=== PATIENT | male | born 1985 | race Asian ===

== ENCOUNTER 2022-04-12 18:08 | Emergency (ER) | payer SELFPAY ==
[~2022-04-12] VITALS: Ht 167.6 cm; Wt 59.0 kg
--- NOTE | 2022-04-12 18:08 | NUR ---
PT CAME IN C/O LLQ PAIN X 1 DAY, DENIES N/V/D, DENIES FEVERS. DENIES MEDICAL SURGICAL HX. A&OX4 CALM AND COOPERATIVE IN NO SIGNS OF ACUTE DISTRESS. CARE WILL BE PROVIDED ORDERED.
[2022-04-12 18:32] VITALS: BP_SYST 149
--- NOTE | 2022-04-12 18:40 | NUR ---
ER Dr. CRAVEN at bedside examining patient.
[2022-04-12] MEDS ORDERED: MORPHINE 4 MG INJ. 4 MG/ML VIAL IVP ONE (18:45)
[2022-04-12] MEDS ORDERED: KETOROLAC TROMETHAMINE 30 MG VIAL IVP ONE (18:45)
[2022-04-12] MEDS ORDERED: NACL 0.9% 1,000 ML IV ONE (18:45)
[2022-04-12 19:12] LABS: BASOPHILS % (AUTO) 0.5 % (0.0-2.0); EOSINOPHILS % (AUTO) 0.5 % (0.0-4.0); HEMATOCRIT 43.8 % (36-54); HEMOGLOBIN 14.6 g/dL (14.0-18.0); LYMPHOCYTES # (AUTO) 1.3 K/uL (1.0-5.5); LYMPHOCYTES % (AUTO) 17.7 % (20.5-51.5); MEAN CORPUSCULAR HEMOGLOBIN 28 pg (27-31); MEAN CORPUSCULAR HGB CONC 33 % (32-36); MEAN CORPUSCULAR VOLUME 84 fL (79.0-98.0); MONOCYTES # (AUTO) 0.4 K/uL (0.0-1.0); MONOCYTES % (AUTO) 5.6 % (1.7-9.3); NEUTROPHILS # (AUTO) 5.5 K/uL (1.8-7.7); NEUTROPHILS % (AUTO) 75.7 % (40.0-70.0); PLATELET COUNT (AUTO) 209 K/uL (130-430); RED BLOOD CELL COUNT(AUTO) 5.25 MIL/uL (4.2-6.2); RED CELL DISTRIBUTION WIDTH 12.8 % (9.0-15.0); WHITE BLOOD COUNT (AUTO) 7.3 K/uL (4.8-10.8)
[2022-04-12 19:23] LABS: CREATININE 1.31 mg/dL (0.55-1.30)
[2022-04-12 19:30] LABS: ALBUMIN 3.9 g/dL (3.4-4.8); TOTAL BILIRUBIN 0.5 mg/dL (0.0-1.0)
--- NOTE | 2022-04-12 20:38 | NUR ---
RECEIVED IN BED WITH C/O PAIN OF THE LEVEL OF 9/10 TO LLQ , MEDICATED ORDERED, RE ASSESSED FOR PAIN AND PATIENT STATED THAT HE STILL HAS PAIN OF 4/10 TO LLQ. PATIENT WAS THEN REMEDICATED ORDERED. PATIENT PRESENTLY DENIES PAIN, V/S 129/86 (102), RR10, HR78 O2SAT 98% RA TEMP 98.1 ORAL. WILL CONTINUE TO MONITOR
[2022-04-12] MEDS ORDERED: NAPR-1172 PO (21:21)
[2022-04-12 22:08] VITALS: BP_SYST 129
== END 2022-04-12 22:08 | disposition home or self-care (01) ==
LOC: SED 18:08
DX: N20.0 Calculus of kidney (principal); Z79.899 Other long term (current) drug therapy
CPT/HCPCS: 99284; 74176; 96374; 96361; 96375; 80053; 85025; 36415; 76376; J1885; J2270; J7030